=== PATIENT | female | born 1935 | race Caucasian/White ===

== ENCOUNTER → 2017-11-12 | Outpatient (CLI) | payer OTHER ==
[~2017-11-12] VITALS: Ht 162.6 cm; Wt 74.8 kg
[~2017-11-12] MED LIST: AMLODIPINE BESYL5 MG PO; ASPIR 8181 MG PO; CALCIUM 600 MG1 EAC3 PO; CARAFATE 11 GM/10 M1 PO; FAMCYCLOVIR 50500 M1 PO; FUROSEMIDE 20 M20 M1 PO; LORTAB 5 MG/5001 TA1 PO; MULTIVITAMINS PO; OMEPRAZOLE 20 M20 M1 PO; RESTORIL15 MG PO; VITAMIN D31000 UNI2 PO
[2017-11-12 09:42] VITALS: BP 149/87
[2017-11-12 12:13] LABS: ABSOLUTE NEUTROPHILS 3.3 thou/uL (1.4-8.2); EOSINOPHILS 1.6 % (0.0-3.0); HEMATOCRIT 39.9 % (37.0-47.0); HEMOGLOBIN 13.5 gm/dL (12.0-15.0); LYMPHOCYTES 28.8 % (24.0-44.0); MCH 31.3 pg (26.0-34.0); MCHC 33.8 g/dL (28.0-37.0); MCV 92.6 fL (80.0-100.0); MONOCYTES 8.2 % (1.0-8.0); PLATELET COUNT 336 thou/uL (150-400); POLYS 60.4 % (36.0-66.0); RBC 4.31 mil/uL (4.20-5.00); WBC 5.4 thou/uL (4.0-11.0)
[2017-11-12 12:27] LABS: ALBUMIN 3.8 g/dL (3.4-5.0); ANION GAP 8 mmol/L (7-16); BUN 22 mg/dL (7-18); CALCIUM 8.9 mg/dL (8.5-10.1); CHLORIDE 103 mmol/L (98-107); CO2 28 mmol/L (21-32); CREATININE 0.9 mg/dL (0.6-1.0); GLUCOSE 121 mg/dL (74-106); MAGNESIUM 2.2 mg/dL (1.8-2.4); POTASSIUM 3.9 mmol/L (3.5-5.1); SGOT 22 U/L (15-37); SGPT 28 U/L (30-65); SODIUM 139 mmol/L (136-145); TOTAL BILIRUBIN 0.3 mg/dL (<0.1-1.0)
[2017-11-12 13:14] LABS: TSH 0.716 uIU/mL (0.358-3.740)
[2017-11-12 19:11] LABS: GLYCOHEMOGLOBIN (HGB A1C) 5.5 % (4.8-5.6)
== END ==
LOC: SEN 08:42
PROVIDERS: Registered Nurse
DX: I10 Essential (primary) hypertension (principal); K44.9 Diaphragmatic hernia without obstruction or gangrene; G47.00 Insomnia, unspecified; M19.90 Unspecified osteoarthritis, unspecified site; R63.5 Abnormal weight gain; R53.83 Other fatigue

== ENCOUNTER 2019-07-11 11:45 | Emergency (ER) | payer OTHER ==
[~2019-07-11] VITALS: Ht 160 cm; Wt 72.6 kg
[2019-07-11 12:52] VITALS: BP 162/69
== END 2019-07-11 12:52 | disposition home or self-care (01) ==
LOC: ER 11:45
DX: I10 Essential (primary) hypertension (principal); K21.9 Gastro-esophageal reflux disease without esophagitis; Z90.49 Acquired absence of other specified parts of digestive tract; Z90.710 Acquired absence of both cervix and uterus; Z85.828 Personal history of other malignant neoplasm of skin

== ENCOUNTER → 2019-07-11 | Outpatient (CLI) | payer OTHER ==
[~2019-07-11] VITALS: Ht 162.6 cm; Wt 81.7 kg
[~2019-07-11] MED LIST changes: +ASA81BEC PO; +COZAAR 25 MG TA25 M2 PO; +DESYREL150 MG PO; +MELOXICAM15 MG PO; +NEURONTIN300 MG PO; +PROTONIX40 M1 PO
--- NOTE | 2019-07-14 08:46 | EKG ---
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
--- NOTE | 2019-07-15 14:06 | PATH ---
[facility] [address] [place] [address] PATHOLOGY RPT PROCEDURE Name: TEETEE BAY EILENE Room #: REG [facility] Miki.Wai.#: [id number] Admission: 07/11/19 Date of : 37 Discharge: Report #: [id number] Path Case #: [id number] [facility] Accession Number: [id number] . 01 Material submitted: . esophagus - ESOPHAGEAL ULCERS BX . 01 Clinical history: . Pre-op diagnosis: History of ulcers Post-op diagnosis: Ulcers . 02 Diagnosis: Squamous mucosa, esophageal ulcer, endoscopic biopsy: - Marked active esophagitis associated with ulceration. - Negative for dysplasia or malignancy. - Fragments of muscularis propria present within sample. . (IUV:mml; 07/14/2019) QLM 07/14/2019 1237 Local . 02 Comment: Examination shows marked active esophagitis with numerous intraepithelial neutrophils as well as occasional eosinophils. An increase in intraepithelial eosinophils is not present. Viral inclusions are not identified on routine histological stains; therefore, additional stains (immunohistochemical stains) are not performed. A PAS-D fungal special stain is ordered and the results of this will be reported in an addendum to follow. . (IUV:mml; 07/14/2019) . 02 Addendum: . This addendum is issued subsequent to reviewing a properly controlled PAS-D fungal special stain. There are no definite fungal elements present. (IUV:power electronics research engineer; 07/15/2019) . Professional services performed by [facility] at [facility], [address], [place] [address]. [facility] at [address] [place] [address], [facility] [address] [address]. S/07/15/2019 Addendum Electronically Signed by Lorrie Costa MD, Pathologist . 02 Electronically signed: . Lorrie Costa MD, Pathologist NPI- [id number] . 01 [facility] [address] [place] [address] PATHOLOGY RPT PROCEDURE Name: TEETEE BAY Room #: REG [facility]#: [id number] Admission: 07/11/19 Date of : 37 Discharge: Report #: [id number] Path Case #: [id number] Gross description: . The specimen is received in formalin, labeled "Teetee Bay esophageal ulcer biopsy". Received are seven segments of pale maynard soft tissue ranging in size from 0.2 to 0.4 cm in maximum dimensions. The specimen is submitted entirely in cassette A1. (CAA; 07/11/2019) QAC/QAC 07/11/2019 1400 Local . 02 Pathologist provided ICD-10: K20.9 . 02 CPT . 176977, 166425 Specimen Comment: A courtesy copy of this report has been sent to Specimen Comment: [phone], . Specimen Comment: Report sent to / DR ALCANTARA Performed at: [address] [id number] MD Aubrey Reyes MD Phone: [phone] Performed at: [address] [id number] MD Lorrie Costa MD Phone: [phone]
--- NOTE | 2019-07-17 08:04 | P ---
[facility] [address] [address] [place] [address] PROCEDURE REPORT Name: HANNY BAY Room #: REG [facility]#: [id number] Admission: 07/11/19 Attend Phys: Raj Hermosillo MD Discharge: Date of : 37 Report #: [id number] THIS REPORT FOR: //name// CC: Raj Carey DO PROCEDURE: Upper endoscopy. BRIEF HISTORY: The patient is an 84-year-old woman who is known to me from previous evaluation with upper endoscopy earlier this year, at which time she was found to have esophageal ulcers. She was switched from omeprazole to pantoprazole. She was seen in the office recently and still reporting some issues with dysphagia in particular bread. She has been on omeprazole previously for reflux disease. She also has had some epigastric pain and lower chest discomfort associated with eating. PREOPERATIVE DIAGNOSIS: Continued dysphagia and history of peptic ulcer disease. POSTOPERATIVE DIAGNOSES: 1. Multiple ulcers of the esophagus, increased since last endoscopy in January of this year. 2. Small hiatus hernia. 3. Moderate diffuse gastritis. MEDICATIONS: Deep sedation with propofol per anesthesia. SPECIMEN: Biopsies of esophageal ulcers. ESTIMATED BLOOD LOSS: 3 mL. PROCEDURE: EGD with biopsy. FINDINGS: Prior to propofol sedation, the procedure of upper endoscopy was discussed with the patient as well as potential risks and its complications. She indicates she understands and desires to proceed. DESCRIPTION OF PROCEDURE: With the patient in left lateral decubitus position, the Olympus video endoscope was inserted in the cervical esophagus under direct vision without difficulty. Examination of this organ through its entire length revealed ulceration scattered throughout the entire esophagus. She had long shallow ulcerations, more so in the proximal esophagus than the distal esophagus, but they are present throughout. They had a benign appearance. There were serpiginous in configuration. The largest ulcer in the proximal esophagus was about 10-12 mm in width and probably 30 mm in length. It was relatively shallow. No mass effect was seen. The intervening mucosa was [facility] [address] [place] [address] PROCEDURE REPORT Name: PHUHANNY Room #: REG [facility]#: [id number] Admission: 07/11/19 Attend Phys: Raj Hermosillo MD Discharge: Date of : 37 Report #: [id number] normal. No strictures were seen. The squamocolumnar junction was intact and unremarkable. Multiple biopsies were obtained of the ulcerations. In addition, a small hiatus hernia was seen. The mucosa and hernia was unremarkable. Scope was advanced in the stomach, was examined on end view as well as retroflexed views. There was gastritis and a couple of small erosions, but no ulcers were seen. There was no evidence of bleeding. Upon retroflexion, no mass lesions were seen. The pylorus, duodenal bulb and postbulbar sweep were all inspected and noted to be unremarkable. At that point, the scope was slowly withdrawn and careful circumferential views confirmed the above findings. The patient tolerated the procedure well. Due to the fairly extensive ulceration of the esophagus, esophageal dilation was not undertaken today. CONDITION OF THE PATIENT UPON DISCHARGE: Following procedure, the patient is drowsy. She will be discharged home when fully ambulatory. INSTRUCTIONS TO THE PATIENT AND FAMILY AT THE TIME OF DISCHARGE: The ulceration of the esophagus was actually worse and it was in January of this year. Again, it has a benign appearance. It is noted she does take meloxicam and does take a baby aspirin daily. We will advise her to discontinue meloxicam and try Tylenol alone. She should also discuss with her primary care physician options for nonsteroidals as needed. In addition, we will discuss use of aspirin. I do not believe she has known history of heart disease and it may be in her best interest to discontinue that as well, but we will have that discussed with the patient. At this time, we will have her increase her pantoprazole to 40 mg twice daily. Also we will have her add sucralfate liquid 4 times daily. We will have her return to see me in followup in the office in 6 weeks. I think it will be necessary to re-scope her to monitor these ulcerations for healing. Also, the squamocolumnar junction was completely intact, so I am not convinced these ulcers are on the basis of reflux. At this point, I am concerned about the nonsteroidals. <ELECTRONICALLY SIGNED> By: Raj Hermosillo MD 07/17/19 0804 0831 1737 Raj Hermosillo MD /nt
== END | disposition home or self-care (01) ==
LOC: GI 07:01
DX: K22.10 Ulcer of esophagus without bleeding (principal); K29.70 Gastritis, unspecified, without bleeding; K44.9 Diaphragmatic hernia without obstruction or gangrene; I10 Essential (primary) hypertension; K21.9 Gastro-esophageal reflux disease without esophagitis; Z85.828 Personal history of other malignant neoplasm of skin; Z90.710 Acquired absence of both cervix and uterus; Z90.49 Acquired absence of other specified parts of digestive tract; Z98.41 Cataract extraction status, right eye; Z98.42 Cataract extraction status, left eye; Z79.82 Long term (current) use of aspirin; Z79.899 Other long term (current) drug therapy; Z98.890 Other specified postprocedural states
CPT/HCPCS: 62110; 62900

== ENCOUNTER → 2019-10-17 | Outpatient (CLI) | payer OTHER ==
[~2019-10-17] VITALS: Ht 162.6 cm; Wt 77.1 kg
[~2019-10-17] MED LIST changes: +CARAFATE1 GM PO; +DILTIAZEM ER180 MG PO
--- NOTE | 2019-10-17 17:40 | P ---
[facility] [place] [address] [place] [address] PROCEDURE REPORT Name: HANNY BAY Room #: REG [facility]#: [id number] Admission: 10/17/19 Attend Phys: Raj Hermosillo MD Discharge: Date of : 37 Report #: [id number] THIS REPORT FOR: //name// CC: Raj Caery DO DATE OF SERVICE: 10/17/2019 BRIEF HISTORY: The patient is an 84-year-old woman with a history of multiple esophageal ulcers, which have been persistent and nonhealing on a followup endoscopy. She was advised to take sucralfate suspension daily along with pantoprazole 40 mg twice daily. She also has been on meloxicam and she was advised to discontinue that medicine. She is also advised to discontinue her baby aspirin if feasible with regards to other health issues. PREOPERATIVE DIAGNOSIS: Persistent nonhealing esophageal ulcers. POSTOPERATIVE DIAGNOSES: 1. Multiple nearly completely healed esophageal ulcers. 2. Diffuse gastritis with scattered erosions. 3. Small hiatus hernia. MEDICATIONS: Deep sedation with propofol per anesthesia. SPECIMEN: None. ESTIMATED BLOOD LOSS: None. PROCEDURE: EGD. FINDINGS: Prior to propofol sedation, procedure of upper endoscopy was discussed with the patient as well as potential risks and its complications. She indicates she understands and desires to proceed. DESCRIPTION OF PROCEDURE: With the patient in left lateral decubitus position, the Olympus video upper endoscope was inserted in the cervical esophagus under direct vision without difficulty. Examination of this organ through its entire length revealed multiple nearly healed ulcers scattered throughout the esophagus. I would say all the ulcers were essentially 95% healed. They all had a smooth and benign appearance. No strictures or masses were seen. The squamocolumnar junction was inspected and noted to be unremarkable. There was noted to be a 2-3 cm sliding type hiatus hernia. Mucosa in the hernia was unremarkable. The scope was advanced into the stomach, was examined on end view as well as retroflexed views. There was a pattern of gastritis and there were scattered erosions in the antrum. However, there were no ulcers. There is no [address] [address] PROCEDURE REPORT Name: HANNY BAY EILENE Room #: REG [facility].#: [id number] Admission: 10/17/19 Attend Phys: Raj Hermosillo MD Discharge: Date of : 37 Report #: [id number] evidence of bleeding. Upon retroflexion, the hiatus hernia was seen. No other abnormalities were identified. The pylorus was unremarkable. Duodenal bulb was unremarkable. Postbulbar duodenal sweep was unremarkable. At that point, the scope was slowly withdrawn and careful circumferential views confirmed the above findings. The patient tolerated the procedure well. CONDITION OF THE PATIENT UPON DISCHARGE: Following procedure, the patient drowsy, aroused, conversant and will be discharged home when fully ambulatory. INSTRUCTIONS TO THE PATIENT AND FAMILY AT THE TIME OF DISCHARGE: Ulcers appear to be nearly healed. Unfortunately, the patient is not certain which medicine she is taking. She says she is not all that serious about her medications. Regardless, the ulcers have improved since her last endoscopic examination. We will reinforce with the patient and send her home with written instructions to use sucralfate 4 times daily and pantoprazole twice daily for another 4 weeks. That should result in complete healing. She will return to see me in followup in the office thereafter to discuss long-term strategies and plans. Ideally, she should be off the meloxicam. Also if possible, stop on the baby aspirin as well may be helpful. <ELECTRONICALLY SIGNED> By: Raj Hermosillo MD 10/17/19 1740 0925 1240 Raj Hermosillo MD /nt
== END | disposition home or self-care (01) ==
LOC: GI 07:44
DX: K29.00 Acute gastritis without bleeding (principal); K44.9 Diaphragmatic hernia without obstruction or gangrene; I10 Essential (primary) hypertension; K21.9 Gastro-esophageal reflux disease without esophagitis; Z98.890 Other specified postprocedural states; Z79.899 Other long term (current) drug therapy; Z85.828 Personal history of other malignant neoplasm of skin; Z98.41 Cataract extraction status, right eye; Z98.42 Cataract extraction status, left eye; Z90.710 Acquired absence of both cervix and uterus; Z90.49 Acquired absence of other specified parts of digestive tract; Z79.82 Long term (current) use of aspirin
CPT/HCPCS: 62110; 62900